=== PATIENT | male | born 1995 | race Caucasian/White ===

== ENCOUNTER 2019-04-21 19:46 | Emergency (ER) | payer BC, OTHER ==
[~2019-04-21] VITALS: Ht 188 cm; Wt 77.3 kg
[2019-04-21] MEDS ORDERED: IBUPROFEN 600 MG TABLET PO ONE (21:00)
[2019-04-21] MEDS ORDERED: HYDROCODONE/ACETAMINOPHEN 5-325 MG TABLET PO ONE (22:00)
[2019-04-21 22:36] VITALS: BP 122/87
== END 2019-04-21 23:04 | disposition home or self-care (01) ==
LOC: EMS 19:47
DX: S92.355A Nondisplaced fracture of fifth metatarsal bone, left foot, initial encounter for closed fracture (principal); W21.02XA Struck by soccer ball, initial encounter; Y93.66 Activity, soccer; Y92.89 Other specified places as the place of occurrence of the external cause; Y99.8 Other external cause status